=== PATIENT | male | born 1980 | race Caucasian/White ===

== ENCOUNTER 2016-12-25 08:08 | Emergency (ER) | payer OTHER ==
[2016-12-25 08:16] VITALS: BP 130/80
[2016-12-25] MEDS ORDERED: Lidocaine 1% INJ* 10 MG/ML 30 ML SDV INJ ONE (09:09)
[2016-12-25] MEDS ORDERED: Lidocaine 2% PF * 5 ML VIAL ONE (09:13)
[2016-12-25] MEDS ORDERED: Lidocaine 2% PF * 5 ML VIAL INJ ONE (09:14)
--- NOTE | 2016-12-25 10:25 | UC ---
[facility], scribed for Thompson Parrish MD on 12/25/16 at 0853 . Laceration HPI - HPI Summary HPI Summary: Patient is a 54 y/o M who presents to the with laceration to left hand, 2nd and 3rd finger, since 07 today. He states that he was cutting something with a knife when the knife slipped. He reports using "clotter" that was in the first -aid kit. Tetanus shot is UTD. He denies taking any blood thinner. Patients medication reviewed this visit. - History Of Current Complaint Chief Complaint: UCLaceration Stated Complaint: FINGER LACERATION Time Seen by Provider: 12/25/16 08:32 Hx Obtained From: Patient Laceration Location: Finger Mechanism Of Injury: Sharp Trauma Onset/Duration: Gradual Onset, Lasting Hours, Still Present Severity: Moderate Aggravating Factors: Movement - Allergies/Home Medications Allergies/Adverse Reactions: Allergies Allergy/AdvReac Type Severity Reaction Status Date / Time No Known Allergies Allergy Verified 12/25/16 08:11 Home Medications: Home Medications NK [No Home Medications Reported] 12/25/16 [History Confirmed 12/25/16] PMH/Surg Hx/FS Hx/Imm Hx Endocrine History: Diabetes - Surgical History Surgical History: None - Family History Known Family History: Negative: Cardiac Disease, Diabetes - Social History Alcohol Use: Occasionally Substance Use Type: None Smoking Status (MU): Heavy Every Day Tobacco Smoker Amount Used/How Often: 1 PPD Review of Systems Constitutional: Negative Skin: Other - Laceration to 2nd and 3rd fingers, left. All Other Systems Reviewed And Are Negative: Yes Physical Exam Triage Information Reviewed: Yes Vital Signs: Initial Vital Signs Temp 98.7 F 12/25/16 08:12 Pulse 91 12/25/16 08:12 Resp 16 12/25/16 08:12 BP 130/80 12/25/16 08:12 Pulse Ox 98 12/25/16 08:12 Vital Signs Reviewed: Yes - Additional Comments The patient is well-nourished in no acute distress and in no acute pain. The skin is warm and dry and skin color reflects adequate perfusion. Index finger, left: 1cm laceration dorsal radial aspect. Middle finger: 2cm laceration on DIP joint, dorsal area. Did not visualize tendons. HEENT: The head is normocephalic and atraumatic. The pupils are equal and reactive. The conjunctivae are clear and without drainage. Neck is supple with full range of motion and non-tender. Respiratory: Chest is non-tender. Lungs are clear to auscultation and breath sounds are symmetrical and equal. Cardiovascular: Hear is regular rate and rhythm. There is no murmur or rub auscultated. Abdomen: The abdomen is soft and non-tender. Musculoskeletal: There is no back pain noted. Extremities are non-tender with full range of motion. There is good capillary refill. Neurological: Patient is alert and oriented to person, place and time. The patient has symmetrical motor strength in all four extremities. Psychiatric: The patient has an appropriate affect and does not exhibit any anxiety or depression. Laceration Repair - Laceration Repair 1 Description: Linear Laceration Size After Repair: Length (cm) - 2nd finger: 1cm Debridement: High pressure irrigation with 2cc sterile saline. Cleansed with hypaclens. Type Injection: Local Anesthesia Used: 2.0% Lido Cleansing Completed Via Routine Prep: Yes Irrigation With Pressure Irrigation Device: Yes Closure Material: Sutures Closure Method: Single Layer Suture Of: Skin Suture Type: Other - Ethilon: 4.0 * 2 2 Description: Linear Laceration Size After Repair: Length (cm) - 3rd finger: 2cm flat. Tourniquet for 20 minutes. Debridement: High pressure irrigation with 4cc sterile saline. Cleansed with hypaclens. Type Injection: Digital Anesthesia Used: 2.0% Lido Cleansing Completed Via Routine Prep: Yes Irrigation With Pressure Irrigation Device: Yes Closure Material: Sutures Closure Method: Single Layer Suture Of: Skin Suture Type: Prolene - 4.0 * 7. Re-Evaluation - Re-Evaluation First Eval Re-Evaluation Time: 09:59 Change: Improved Laceration Course/Dx - Course/Dx Course Of Treatment: 54 y/o M presents with laceration to left 2nd and 3rd finger, since 0730 today. Laceration repaired. Pt will be DCd with instructions. He is agreeable. - Differential Dx - Laceration/Wound Provider Diagnoses: Left index finger: 1cm laceration with repair. Left middle finger: 2cm laceration with repair. Discharge - Discharge Plan Condition: Stable Disposition: HOME Patient Education Materials: Finger Laceration (ED) Referrals: Michele Nevarez MD [Primary Care Provider] - Additional Instructions: Please keep dressing on for 2 days. After the 2 days, remove dressing and cleanse with soap and water twice a day and use triple antibiotic ointment. Keep laceration repair covered during the day and air dry at night. Take stiches out in 10-14 days. Please follow up with your primary care provider. The documentation as recorded by the [facility] accurately reflects the service I personally performed and the decisions made by me, Thompson Parrish MD.
== END 2016-12-25 10:13 | disposition home or self-care (01) ==
LOC: UCEAST 08:08
DX: S61.211A Laceration without foreign body of left index finger without damage to nail, initial encounter (principal); S61.213A Laceration without foreign body of left middle finger without damage to nail, initial encounter; W26.0XXA Contact with knife, initial encounter; Y93.9 Activity, unspecified; Y92.9 Unspecified place or not applicable; E11.9 Type 2 diabetes mellitus without complications; F17.210 Nicotine dependence, cigarettes, uncomplicated
CPT/HCPCS: 12001; 12002; 99201; G0463; J2001

== ENCOUNTER 2017-01-05 08:22 | Emergency (ER) | payer OTHER ==
[2017-01-05 08:34] VITALS: BP 123/85
--- NOTE | 2017-01-05 12:07 | UC ---
Skin Complaint HPI - HPI Summary HPI Summary: Patient presents for suture removal. He was told to wait 10-14 days. There are no signs of infection such as streaking, warmth, redness or drainage. He has been leaving the area open to air and denies complaints. Denies aches, sweats, chills or fevers. - History of Current Complaint Chief Complaint: UCSkin Time Seen by Provider: 01/05/17 08:42 Stated Complaint: SUTURE REMOVAL Hx Obtained From: Patient Onset/Duration: Sudden Onset Skin Exposure Onset/Duration: Weeks Ago Timing: Constant Onset Severity: Mild Current Severity: Mild Pain Intensity: 0 Pain Scale Used: 0-10 Numeric Location: Hand (Left) Aggravating: Nothing Alleviating: Nothing Related History: Trauma - Allergy/Home Medications Allergies/Adverse Reactions: Allergies Allergy/AdvReac Type Severity Reaction Status Date / Time No Known Allergies Allergy Verified 12/25/16 08:11 Review of Systems Constitutional: Negative Skin: Other - suture removal Respiratory: Negative Cardiovascular: Negative Gastrointestinal: Negative Motor: Negative Neurovascular: Negative Neurological: Negative Psychological: Negative All Other Systems Reviewed And Are Negative: Yes PMH/Surg Hx/FS Hx/Imm Hx Previously Healthy: Yes - Surgical History Surgical History: None - Family History Known Family History: Negative: Cardiac Disease, Diabetes - Social History Occupation: Employed Full-time Lives: With Family Alcohol Use: Occasionally Substance Use Type: None Smoking Status (MU): Heavy Every Day Tobacco Smoker Amount Used/How Often: 1 PPD Physical Exam Triage Information Reviewed: Yes Appearance: Well-Appearing, No Pain Distress, Well-Nourished Vital Signs: Initial Vital Signs Temp 98.9 F 01/05/17 08:32 Pulse 77 01/05/17 08:32 Resp 18 01/05/17 08:32 BP 123/85 01/05/17 08:32 Pulse Ox 100 01/05/17 08:32 Vital Signs Reviewed: Yes Eye Exam: Normal Eyes: Positive: Conjunctiva Clear Neck exam: Normal Neck: Positive: Supple, Nontender, No Lymphadenopathy Respiratory Exam: Normal Respiratory: Positive: Chest non-tender, Lungs clear Cardiovascular Exam: Normal Cardiovascular: Positive: RRR Musculoskeletal Exam: Normal Musculoskeletal: Positive: Strength Intact Neurological Exam: Normal Psychological Exam: Normal Skin Exam: Normal Course/Dx - Course Course Of Treatment: Sutures removed. Patient tolerated well. Antibiotic ointment and bandage placed. Return precautions given. - Diagnoses Provider Diagnoses: Suture Removal Discharge - Discharge Plan Condition: Stable Disposition: HOME Patient Education Materials: Stitches Removal (ED) Referrals: Michele Nevarez MD [Primary Care Provider] - Additional Instructions: If you develop any signs of infection such as red streaks around the wound, drainage from the area or warmth - come back to UC Continue with a bandage today, then leave open to air tomorrow.
== END 2017-01-05 09:05 | disposition home or self-care (01) ==
LOC: UCEAST 08:22
DX: Z48.02 Encounter for removal of sutures (principal)
CPT/HCPCS: 99211; G0463

== ENCOUNTER 2018-12-22 20:42 | Emergency (ER) | payer OTHER ==
--- NOTE | 2018-12-22 20:50 | UC ---
Skin Complaint HPI - HPI Summary HPI Summary: 38 yo male presents with rash. He tells me that yesterday he was at his sister' s new house and was playing with the dogs and was outdoors a lot. Last night developed some itching on his neck, arms, legs, and genitals. Today he noticed a red rash to these areas that is more itchy. He thinks it may be poison ani as he has had this before and this feels similar. He has not applied any lotions/ creams and has not taken anything OTC for his symptoms. He denies allergies, SOB , or difficulty breathing. - History of Current Complaint Time Seen by Provider: 12/22/18 20:50 Stated Complaint: POISON ANI Hx Obtained From: Patient Onset/Duration: Gradual Onset Onset Severity: Moderate Current Severity: Moderate Pain Intensity: 5 Pain Scale Used: 0-10 Numeric - Allergy/Home Medications Allergies/Adverse Reactions: Allergies Allergy/AdvReac Type Severity Reaction Status Date / Time No Known Allergies Allergy Verified 12/25/16 08:11 PMH/Surg Hx/FS Hx/Imm Hx - Additional Past Medical History Additional PMH: None - Surgical History Surgical History: None - Family History Known Family History: Negative: Cardiac Disease, Diabetes - Social History Occupation: Employed Full-time Lives: With Family Alcohol Use: Occasionally Substance Use Type: None Smoking Status (MU): Heavy Every Day Tobacco Smoker Amount Used/How Often: 1 PPD Review of Systems All Other Systems Reviewed And Are Negative: Yes Constitutional: Positive: Negative Skin: Positive: Rash Respiratory: Positive: Negative Cardiovascular: Positive: Negative Neurovascular: Positive: Negative Neurological: Positive: Negative Psychological: Positive: Negative Physical Exam - Summary Physical Exam Summary: GENERAL: NAD. WDWN. No pain distress. SKIN: Left neck with ~10.0cm area of erythema with slight blistering. Left cheek with scant erythematous blistering patch. Right AC with similar appearing lesions 4.0cm in size. Legs with scattered similar appearing lesions. No open sores, bleeding, or drainage. NECK: Supple. Nontender. No lymphadenopathy. HEENT: Airway patent. No perioribital edema. No tongue or lip edema. CHEST: No accessory muscle use. Breathing comfortably and in no distress. CV: Pulses intact. Cap refill <2seconds NEURO: Alert. PSYCH: Age appropriate behavior. Triage Information Reviewed: Yes Vital Signs: Vital Signs: Temp Pulse Resp BP Pulse Ox 99.1 F 81 18 135/88 98 12/22/18 20:51 12/22/18 20:51 12/22/18 20:51 12/22/18 20:51 12/22/18 20:51 Vital Signs Reviewed: Yes Course/Dx - Course Course Of Treatment: Suspect poison vs contact dermatitis. Pt was given kenalog 40mg IM in the clinic. Will rx for prednisone for 50mg for 5 days and have him take a daily benadryl. Apply calamine or benadryl cream to the areas to decrease inflammation and itch. Strongly advised to go to the ED if the rash spreads onto his face or if he develops SOB, facial edema, or difficulty breathing. Pt voiced understanding. - Diagnoses Provider Diagnosis: Poison ani Discharge - Sign-Out/Discharge Documenting (check all that apply): Patient Departure All imaging exams completed and their final reports reviewed: No Studies - Discharge Plan Condition: Stable Disposition: HOME Prescriptions: predniSONE TAB* [Deltasone TAB*] 50 mg PO DAILY #5 tab Patient Education Materials: Poison Ani (ED) Referrals: Michele Nevarez MD [Primary Care Provider] - Additional Instructions: If you develop a fever, shortness of breath, chest pain, new or worsening symptoms - please call your PCP or go to the ED immediately. 1) Take a benadryl daily 2) Take the prednisone 50mg daily for 5 days 3) Apply calamine lotion or benadryl cream to the areas of rash/blistering 4) If the rash spreads or if you have worsening symptoms - please be rechecked immediately - Billing Disposition and Condition Condition: STABLE Disposition: Home
[2018-12-22 21:01] VITALS: BP 135/88
[2018-12-22] MEDS ORDERED: Triamcinolone Acetonide* 40 MG/ML 1 ML VIAL IM ONE (21:11)
== END 2018-12-22 21:29 | disposition home or self-care (01) ==
LOC: UCEAST 20:42
DX: L23.7 Allergic contact dermatitis due to plants, except food (principal); T63.791A Toxic effect of contact with other venomous plant, accidental (unintentional), initial encounter; Y92.9 Unspecified place or not applicable; F17.210 Nicotine dependence, cigarettes, uncomplicated
CPT/HCPCS: 96372; 99212; G0463; J3301

== ENCOUNTER 2018-12-31 12:47 | Emergency (ER) | payer OTHER ==
[2018-12-31 15:01] VITALS: BP 110/62
--- NOTE | 2018-12-31 15:29 | UC ---
Skin Complaint HPI - HPI Summary HPI Summary: Patient with a history of poison tracy. Patient was treated with 5 day course of prednisone. Patient states he thought he was getting better and then his symptoms got bad. Patient states he now has rash all over his body. Patient states he is most concerned because The Left Side of the Face and Feels for the Last 24 Hours of That in His Eye. Patient Denies Vision Changes but States His Eye Itches and Adamantly Tears. Patient Does Have Some Rash on His Eyelid. Patient Does Not Wear Corrective Lenses. Patient Has Been Using Over-The- Counter Benadryl at Nighttime As Well As Poison Tracy Body Wash. Patient States at Times Itching Is Very Bad. Patient Was Then Night He Open or Bleeding Areas. Patient's Medications Reviewed This Visit. Patient's Tetanus Is Up-To- Date. - History of Current Complaint Chief Complaint: UCRash Time Seen by Provider: 12/31/18 14:50 Stated Complaint: RASH NEAR EYE Hx Obtained From: Patient, Medical Records Onset/Duration: Gradual Onset Skin Exposure Onset/Duration: Hours Ago Onset Severity: Mild Current Severity: None Pain Intensity: 0 - Allergy/Home Medications Allergies/Adverse Reactions: Allergies Allergy/AdvReac Type Severity Reaction Status Date / Time No Known Allergies Allergy Verified 12/31/18 13:13 PMH/Surg Hx/FS Hx/Imm Hx Previously Healthy: Yes - Surgical History Surgical History: None - Family History Known Family History: Positive: Non-Contributory Negative: Cardiac Disease, Diabetes - Social History Occupation: Employed Full-time Lives: With Family Alcohol Use: Occasionally Substance Use Type: None Smoking Status (MU): Heavy Every Day Tobacco Smoker Amount Used/How Often: 1 PPD Review of Systems All Other Systems Reviewed And Are Negative: Yes Skin: Positive: Rash Eyes: Positive: Other - left eye irritation Physical Exam - Summary Physical Exam Summary: Vital Signs Reviewed: Yes A+Ox3, no distress Eyes: mild injection left eye, KRISTIN. EOM intact and full, no photophobia, ENT: Hearing grossly normal TM x 2 clear, mmoist, uvula midline, no exudate, no erythema Neck: Positive: Supple Respiratory: Positive: No respiratory distress, No accessory muscle use + CTA throughout no w/r Cardiovascular: RRR nl s1, s2 no m/r CBT <2 sec abd soft + BS nt/nd no guarding, no distension Musculoskeletal Exam: DOLL x 4 without difficulty Strength Intact, ROM Intact Neurological: Positive: Alert, + sensation throughout Psychological: Positive: Normal Response To Family Skin: Positive: pt with diffuse erythema, dry patches to forearms, upper chest and left side face slight extension to left upper lid no blisters Triage Information Reviewed: Yes Vital Signs: Initial Vital Signs Temp 98 F 12/31/18 13:11 Pulse 86 12/31/18 13:11 Resp 20 12/31/18 13:11 BP 119/80 12/31/18 13:11 Pulse Ox 100 12/31/18 13:11 Course/Dx - Course Course Of Treatment: Patient presents to urgent care with spreading rash. Patient was recently treated with 5 days of prednisone for poison tracy. Patient states symptoms got better but then got worse again. Patient here take as is concerned about his left eye. Patient states his been burning and tearing is got some rash on his left upper lip. On exam patient does have diffuse findings consistent with disseminated poison tracy. We'll place patient on prednisone with a 1418 per. Recommended Pepcid twice a day as medical sedating. Okay to take at night. Cool soaks. Did speak to Dr. Hadley's office regarding his eye. Okay to see patient if discharge and sent mealy. Patient comfortable agreement with plan. Patient declined work note. - Diagnoses Provider Diagnosis: Poison tracy dermatitis Discharge - Sign-Out/Discharge Documenting (check all that apply): Patient Departure All imaging exams completed and their final reports reviewed: No Studies - Discharge Plan Condition: Stable Disposition: HOME Prescriptions: Famotidine TAB* [Pepcid 20 MG TAB*] 20 mg PO DAILY #20 tab predniSONE TAB* [Deltasone 20 MG TAB*] 20 mg PO DAILY #14 tab Patient Education Materials: Poison Tracy (ED) Referrals: Michele Nevarez MD [Primary Care Provider] - Iggy Hadley MD [Medical Doctor] - (Go directly to his office - he is expecting you there now) Additional Instructions: Take prednisone exactly as prescribed until gone - starting today - it is very important you take a full course o - Okay to take Benadryl (1-2 tablets) every 6 hours as needed. This medication may cause drowsiness - do NOT drive, operate machinery or drink alcohol while taking Benadryl -Take pepcid as prescribed - 2 times daily for 7 days -Avoid getting over heated (hot showers, hot tubs, exercise) for at least 48 hours - Try to avoid aspirin, NSAIDs (Motrin, Aleve, Naprosyn) for 2-3 days - Okay to apply cool compresses to the area of injury - use non scented soaps and lotions -Contact your doctor or return here with questions or concerns - Billing Disposition and Condition Condition: STABLE Disposition: Home
== END 2018-12-31 15:38 | disposition home or self-care (01) ==
LOC: UCEAST 12:47
DX: L23.7 Allergic contact dermatitis due to plants, except food (principal); F17.210 Nicotine dependence, cigarettes, uncomplicated
CPT/HCPCS: 99212; G0463